=== PATIENT | male | born 1940 ===

== ENCOUNTER 2018-01-08 18:29 | Outpatient (CLI) | payer OTHER | END 2018-01-08 20:18 | disposition home or self-care (01) | LOC: LAB 18:29 | DX: R97.20 Elevated prostate specific antigen [PSA] (principal) ==

== ENCOUNTER 2018-01-22 07:08 | Outpatient (CLI) | payer OTHER | END 2018-01-22 07:15 | disposition home or self-care (01) | LOC: SONOGRAMA 07:08 | DX: R97.20 Elevated prostate specific antigen [PSA] (principal) ==